=== PATIENT | male | born 2000 | race Caucasian/White ===

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

== ENCOUNTER 2022-08-23 08:00 | Emergency (ER) | payer MEDICAID, OTHER ==
[~2022-08-23] VITALS: Ht 188 cm; Wt 108.9 kg
[~2022-08-23 08:00] MED LIST: IBUP-1969 PO; MAGN296S8 PO
[2022-08-23 08:25] VITALS: BP_SYST 133
--- NOTE | 2022-08-23 08:35 | NUR ---
Patient to ER bed 3 to gown for evaluation. Side rails up. Report given to Theresa AHN.
--- NOTE | 2022-08-23 08:40 | NUR ---
PT CAME IN FROM HOME, C/O NAUSEA AFTER EATING AND DIARRHEA AFTER DRINKING WATER. PT IS AMBULATORY, AAOX4, VSS
--- NOTE | 2022-08-23 08:45 | NUR ---
ER DR. GUERRA EXAMINING PT AT THE BEDSIDE
[2022-08-23] MEDS ORDERED: LOM2.5 PO (08:52)
[2022-08-23] MEDS ORDERED: NAPR-688 PO (08:52)
[2022-08-23] MEDS ORDERED: ONDA-8 TL (08:52)
[2022-08-23 09:01] VITALS: BP_SYST 133
--- NOTE | 2022-08-23 09:02 | NUR ---
Patient given written and verbal discharge instructions and verbalizes understanding. ER MD discussed with patient the results and treatment provided. Patient in stable condition. ID arm band removed. Rx of LOMOTIL, NAPROXEN AND ZOFRAN given. Patient educated on pain management and to follow up with PMD. Pain Scale 0/10. Opportunity for questions provided and answered. Medication side effect fact sheet provided.
== END 2022-08-23 09:01 | disposition home or self-care (01) ==
LOC: SED 08:00
DX: K52.9 Noninfective gastroenteritis and colitis, unspecified (principal); R10.9 Unspecified abdominal pain; R11.2 Nausea with vomiting, unspecified; Z79.899 Other long term (current) drug therapy
CPT/HCPCS: 99283

== ENCOUNTER 2022-09-22 20:58 | Emergency (ER) | payer MEDICAID ==
[~2022-09-22] VITALS: Ht 188 cm; Wt 129.3 kg
[~2022-09-22 20:58] MED LIST changes: +LOM2.5 PO; +NAPR-688 PO; +ONDA-8 TL
[2022-09-22 22:10] VITALS: BP_SYST 150
[2022-09-22] MEDS ORDERED: HYDROcodone/ACETAMIN 7.5-325 MG TAB PO ONE (22:30)
[2022-09-22] MEDS ORDERED: IBUP-1969 PO (22:43)
[2022-09-22 23:08] VITALS: BP_SYST 130
== END 2022-09-22 23:08 | disposition home or self-care (01) ==
LOC: SED 20:58
DX: S20.211A Contusion of right front wall of thorax, initial encounter (principal); Z79.899 Other long term (current) drug therapy; Y27.2XXA Contact with hot fluids, undetermined intent, initial encounter; Y93.89 Activity, other specified; Y92.89 Other specified places as the place of occurrence of the external cause; Y99.8 Other external cause status
CPT/HCPCS: 71045; 99283